=== PATIENT | male | born 1985 | race Caucasian/White ===

== ENCOUNTER 2025-02-04 19:19 | Emergency (ER) | payer SELFPAY ==
[2025-02-04 19:24] VITALS: BP 174/89; PULSE 96; TEMP 36.9; O2SAT 97; BMI 34.9
--- NOTE | 2025-02-04 19:42 | ED.BACK1 ---
HPI HPI - Back Pain/Injury General Chief Complaint: Back Pain/Injury Stated Complaint: BACK PAIN Time Seen by Provider: 02/04/25 19:28 Source: patient Mode of arrival: walk-in History of Present Illness HPI Narrative: back pain. Works as a machine tool mechanic. states around 2AM at work developed stiffness of his back. Not able to recall any injury. Around 4AM increased discomfort and drove home. Hard time getting out of the car due to pain. No radiation of pain to upper or lower extremities. Pain in his back left side just beneath his scapula. Denies similar pain. Hard to lay flat because the pain increases. Prefers to lay semi erected. no fever or chills Related Data Home Medications ?Medication ?Instructions ?Recorded ?Confirmed No Known Home Medications 02/04/25 02/04/25 Allergies Allergy/AdvReac Type Severity Reaction Status Date / Time No Known Drug Allergies Allergy Verified 02/04/25 19:29 Opioid HPI Opioid Management Most Recent Opioid Data: Last Pain Scale 4 Today, 22:42 Last ED Pain Assessment Today, 22:42 Last MAR Pain Assessment Today, 21:36 Review of Systems ROS Status of ROS 10 or more systems reviewed and unremarkable except as noted in history and below PFSH PFSH Social History Little interest or pleasure in doing things: not at all Feeling down, depressed, or hopeless: not at all Exam Constitutional Vital Signs, click to edit/add: Last Vital Signs Temp 98.4 F 02/04/25 19:24 Pulse 86 02/04/25 22:42 Resp 17 02/04/25 22:42 BP 154/97 H 02/04/25 22:42 Pulse Ox 95 02/04/25 22:42 Common normals: no apparent distress (no distress as long as he doesn't move), average body habitus, oriented x3, no limitations, healthy appearing, alert and well nourished [facility] Common normals: normocephalic and head/scalp atraumatic Eye Common normals: EOMs intact bilaterally and conjunctivae normal Respiratory Common normals: normal respiratory effort, no retractions, no use of accessory muscles and clear to auscultation bilaterally Cardio Common normals: regular rate, regular rhythm, S1 normal heart sound and S2 normal heart sound Back & Pelvis Back image (male):  1. tender contracted muscle Extremity Common normals: normal to inspection and full ROM Neuro Common normals: oriented x3, CN's II-XII intact bilaterally, moves all extremities and no focal motor deficits Psych Appearance: grossly normal Course Vital Signs Vital signs: Vital Signs Temperature 98.4 F 02/04/25 19:24 Pulse Rate 96 H 02/04/25 19:24 Respiratory Rate 18 02/04/25 19:24 Blood Pressure 174/89 H 02/04/25 19:24 Pulse Oximetry 97 02/04/25 19:24 Temperature 98.4 F 02/04/25 19:24 Pulse Rate 86 02/04/25 22:42 Respiratory Rate 17 02/04/25 22:42 Blood Pressure 154/97 H 02/04/25 22:42 Pulse Oximetry 95 02/04/25 22:42 MDM - Back Pain/Injury MDM Narrative Medical decision making narrative: patient presents with acute back pain without injury. On exam found to have muscular spasm left thoracic musculature. treated with cocktail of valium, Fentanyl, solumedrol and magnesium. Pain decreased to 4/10. Patient was able to get up and ambulate to the bathroom with decreased pain. Discharged with prescription for Bromide and valium as well as narcan and is to follow up with his doctor Lab Data Labs: Lab Results 02/04/25 Range/Units 20:08 WBC 6.7 (4.0-11.0) 10^3/uL RBC 4.72 (4.70-6.10) 10^6/uL Hgb 13.8 L (14.0-18.0) g/dL Hct 40.4 L (42.0-54.0) % MCV 85.6 (80.0-94.0) fL MCH 29.2 (25.9-34.0) pg MCHC 34.2 (29.9-35.2) g/dL RDW 12.7 (11.0-15.0) % Plt Count 250 (150-450) 10^3/uL MPV 9.6 (9.5-13.5) fL Neut % (Auto) 60.2 (43.0-75.0) % Lymph % (Auto) 32.3 (20.5-60.0) % [place] % (Auto) 4.2 (1.7-12.0) % Eos % (Auto) 1.9 (0.9-7.0) % Baso % (Auto) 1.0 (0.2-2.0) % Neut # (Auto) 4.0 (1.4-6.5) 10^3/uL Lymph # (Auto) 2.2 (1.2-3.8) 10^3/uL [place] # (Auto) 0.3 (0.3-0.8) 10^3/uL Eos # (Auto) 0.1 (0.0-0.7) 10^3/uL Baso # (Auto) 0.1 (0.0-0.1) 10^3/uL Abs Immat Gran (auto) 0.03 (0.00-0.03) 10^3/uL Imm/Tot Granulo (auto) 0.4 (0.0-0.5) % Sodium 140 (136-145) mmol/L Potassium 3.8 (3.5-5.1) mmol/L Chloride 104 (98-107) mmol/L Carbon Dioxide 25.9 (21.0-32.0) mmol/L Anion Gap 13.9 BUN 12.0 (7.0-18.0) mg/dL Creatinine 1.00 (0.70-1.30) mg/dL Est GFR ( Amer) >60 (>=60 mL/min/1.73m^2) Est GFR (Non-Af Amer) >60 (>=60 mL/min/1.73m^2) BUN/Creatinine Ratio 12.0 Glucose 216 H (74-106) mg/dL Calcium 8.8 (8.5-10.1) mg/dL C-Reactive Protein <0.50 (<=0.50) mg/dL Discharge Plan Discharge Chief Complaint: Back Pain/Injury Clinical Impression: Spasm of thoracic back muscle Patient Disposition: Home, Self-Care Prescriptions / Home Meds: No Action No Known Home Medications Print Language: Kenyan Instructions: Muscle Spasm (ED) Additional Instructions: follow up with your family doctor in a couple of days for recheck Referrals: Physician,Non-Staff, [Primary Care Provider] - 1 week
[2025-02-04 20:13] LABS: Basophils Absolute Auto 0.1 10^3/uL (0.0-0.1); Eosinophils Absolute Auto 0.1 10^3/uL (0.0-0.7); Eosinophils Percent Auto 1.9 % (0.9-7.0); Hematocrit 40.4 % (42.0-54.0); Hemoglobin 13.8 g/dL (14.0-18.0); Immature Granulocytes Abs Auto 0.03 10^3/uL (0.00-0.03); Immature Granulocytes Pct Auto 0.4 % (0.0-0.5); Lymphocytes Absolute Auto 2.2 10^3/uL (1.2-3.8); Lymphocytes Percent Auto 32.3 % (20.5-60.0); Mean Corpuscular HGB Conc 34.2 g/dL (29.9-35.2); Mean Corpuscular Hemoglobin 29.2 pg (25.9-34.0); Mean Corpuscular Volume 85.6 fL (80.0-94.0); Mean Platelet Volume 9.6 fL (9.5-13.5); Monocytes Absolute Auto 0.3 10^3/uL (0.3-0.8); Monocytes Percent Auto 4.2 % (1.7-12.0); Neutrophils Percent Auto 60.2 % (43.0-75.0); Platelet Count 250 10^3/uL (150-450); Red Blood Count 4.72 10^6/uL (4.70-6.10); Red Cell Distribution Width 12.7 % (11.0-15.0); White Blood Count 6.7 10^3/uL (4.0-11.0)
[2025-02-04] MEDS: METHYLPREDNISOLONE SOD SUCC PF 125 MG/2 ML VIAL IVP (20:18)
[2025-02-04] MEDS: DIAZEPAM 10 MG/2 ML SYRINGE 5 MG IV ×2 (20:18→21:35)
[2025-02-04] MEDS: MAGNESIUM SULFATE IN WATER 2 GM/50 ML PREMIX IV (20:20)
[2025-02-04 20:26] LABS: Anion Gap 13.9; C Reactive Protein <0.50 mg/dL (<=0.50); Calcium 8.8 mg/dL (8.5-10.1); Carbon Dioxide 25.9 mmol/L (21.0-32.0); Chloride 104 mmol/L (98-107); Estimated GFR (African America >60 (>=60 mL/min/1.73m^2); Estimated GFR (Non-African Ame >60 (>=60 mL/min/1.73m^2); Glucose 216 mg/dL (74-106); Potassium 3.8 mmol/L (3.5-5.1); Sodium 140 mmol/L (136-145)
[2025-02-04 20:40] VITALS: PULSE 90; O2SAT 94
[2025-02-04 21:03] VITALS: PULSE 94; O2SAT 93
[2025-02-04 21:08] VITALS: BP 155/95; PULSE 98; O2SAT 95
[2025-02-04] MEDS: FENTANYL CITRATE/PF 100 MCG/2 ML VIAL 50 MCG IV (21:36)
[2025-02-04 21:45] VITALS: BP 125/76
[2025-02-04 22:42] VITALS: BP 154/97; PULSE 86; O2SAT 95
[2025-02-04] MEDS: HYDROCODONE/ACET 5-325 MG TABLET 2 TAB PO (23:58)
[2025-02-05 00:01] VITALS: BP 143/95; PULSE 78; O2SAT 96
--- NOTE | 2025-02-05 00:03 | PC.NURSE ---
i gave this patient and his girlfriend verbal a nd written discharge orders along with 1 work note, medications to go home with and 3 Rx for this patient. this patient and his girlfriend voices yes to discharge orders and the 3 Rx usage. at time of discharge this patient nor his girlfriend voices no concerns and this patient shows no signs of distress
== END 2025-02-05 00:06 | disposition home or self-care (01) ==
PROVIDERS: Emergency Provider Internal Medicine
DX: M62.830 Muscle spasm of back (principal)
CPT/HCPCS: 36415; 80048; 85025; 86140; 96365; 96375; 96376; 99285; J2919; J3010; J3360; J3475

== ENCOUNTER 2025-06-04 08:59 | Emergency (ER) | payer SELFPAY ==
[2025-06-04 09:03] VITALS: BP 165/103; PULSE 96; TEMP 37; O2SAT 98; BMI 37.3
--- NOTE | 2025-06-04 09:26 | CT_ITS ---
The [address] [address] Patient Name: LEONORA DURON MRN: [id number] date: 1985 Sex: M Assigned Patient Location: ER Current Patient Location: Accession/Order Number: [id number] Exam Date: 06/04/2025 09:43 Report Date: 06/04/2025 10:15 At the request of: RUDOLPH MCCOY DO Procedure: CT abdomen pelvis wo con CT ABDOMEN AND PELVIS WITHOUT CONTRAST COMPARISON: None CLINICAL DATA: Bilateral flank pain, greater on the right. Dysuria. Spiral images were obtained through the abdomen and pelvis without contrast. This CT exam was performed using one or more following dose reduction techniques: Automated exposure control, adjustment of the mA and/or kV according to patient size, or use of iterative reconstruction technique. Limited cuts through the lung bases show no contributory findings. There is fatty infiltration of the liver. The gallbladder is surgically absent. No common duct stones are identified. The spleen, pancreas and adrenal glands show no acute findings. A 3 mm stone is present at the midpole on the left. There are four 2 mm stones at the mid lower pole on the right. No hydronephrosis is seen. There is no ureteral dilatation or stones. The abdominal aorta is normal caliber. There is minimal plaque. Small retroperitoneal and mesenteric lymph nodes are present. There is no ascites. There is a small umbilical hernia containing fat. The small bowel loops are normal caliber. There is mild stool at the ascending and transverse colon. The left colon is underdistended. There is minor endplate spurring at the spine. Images through the pelvis show nondistended small bowel. No appendiceal inflammation is seen. There is mild air and stool at the distal colon. No diverticular disease is noted. The prostate is not enlarged however it does contains some calcification. The urinary bladder shows no abnormalities for the degree of distention. There are benign-appearing inguinal lymph nodes. No ascites is identified. CT/CT abdomen pelvis wo con IMPRESSION: FATTY LIVER. BILATERAL NEPHROLITHIASIS. NO BOWEL OR URINARY TRACT OBSTRUCTION. SMALL NONSPECIFIC ABDOMINAL LYMPH NODES. NO ACUTE FINDINGS. Impression dictated by: Karen Cowan M.D. 06/04/2025 10:15 AM Dictation Location: [employer] [facility] [employer] [facility] Electronically authenticated by: [id number] Y Date: 06/04/2025 10:15
[2025-06-04] MEDS: HYDROMORPHONE HCL 1 MG/ML CARTRIDGE IV (09:34)
[2025-06-04] MEDS: KETOROLAC TROMETHAMINE 30 MG/ML VIAL IVP (09:34)
[2025-06-04 09:36] LABS: Hematocrit 42.2 % (42.0-54.0); Hemoglobin 14.5 g/dL (14.0-18.0); Immature Granulocytes Abs Auto 0.02 10^3/uL (0.00-0.03); Immature Granulocytes Pct Auto 0.3 % (0.0-0.5); Lymphocytes Absolute Auto 1.8 10^3/uL (1.2-3.8); Mean Corpuscular HGB Conc 34.4 g/dL (29.9-35.2); Mean Corpuscular Hemoglobin 29.6 pg (25.9-34.0); Mean Corpuscular Volume 86.1 fL (80.0-94.0); Platelet Count 216 10^3/uL (150-450); Red Blood Count 4.90 10^6/uL (4.70-6.10); White Blood Count 5.9 10^3/uL (4.0-11.0)
[2025-06-04 09:37] LABS: Glucose Urine UA NEGATIVE (NEGATIVE)
[2025-06-04 09:43] LABS: Anion Gap 14.7; Blood Urea Nitrogen 12.0 mg/dL (7.0-18.0); Calcium 8.9 mg/dL (8.5-10.1); Carbon Dioxide 26.5 mmol/L (21.0-32.0); Chloride 100 mmol/L (98-107); Estimated GFR (African America >60 (>=60 mL/min/1.73m^2); Estimated GFR (Non-African Ame >60 (>=60 mL/min/1.73m^2); Glucose 301 mg/dL (74-106); Potassium 4.2 mmol/L (3.5-5.1); Sodium 137 mmol/L (136-145)
[2025-06-04 09:53] LABS: Cast Seen? NONE SEEN #/LPF (NONE SEEN); Crystals Seen? None Seen #/HPF (None Seen)
--- NOTE | 2025-06-04 14:40 | ED.GENADUL1 ---
HPI HPI - General Adult General Chief complaint: Back Pain/Injury Stated complaint: back pain - possible kidney stone Time Seen by Provider: 06/04/25 09:09 Source: patient Mode of arrival: walk-in History of Present Illness HPI narrative: Patient is a 39-year-old male presenting to the emergency department for evaluation of back pain. Patient states his symptoms began last night, and progressively worsened throughout the morning. He states his symptoms feel exactly like the last time he had a kidney stone. He states he has been having some burning when he urinates as well. He states that any movements of his torso makes the pain worse. He denies hematuria. No fevers or chills. No abdominal pain, nausea, or vomiting. No chest pain or shortness of breath. Related Data Home Medications ?Medication ?Instructions ?Recorded ?Confirmed No Known Home Medications 02/04/25 06/04/25 Allergies Allergy/AdvReac Type Severity Reaction Status Date / Time No Known Drug Allergies Allergy Verified 06/04/25 09:03 Opioid HPI Opioid Management Most Recent Opioid Data: Last Pain Scale 8 Today, 09:39 Last ED Pain Assessment Today, 09:39 Last MAR Pain Assessment Today, 09:34 Review of Systems ROS Status of ROS 10 or more systems reviewed and unremarkable except as noted in history and below PFSH PFSH Social History Little interest or pleasure in doing things: not at all Feeling down, depressed, or hopeless: not at all Exam Narrative Exam Narrative: CONSTITUTIONAL: Sitting upright in the stretcher, complains of pain every time he rotates his torso, answering questions and following commands appropriately SKIN: Was warm and dry. EYES: Sclerae white. EARS, NOSE, THROAT: Moist oral mucosa. RESPIRATORY: Clear to auscultation bilaterally, no wheezes, crackles, or stridor, no use of accessory muscles CARDIOVASCULAR: Normal rate and regular rhythm. There is no S3, S4, murmur, rub. GASTROINTESTINAL: Abdomen is soft, nontender, nondistended. No rebound tenderness or guarding. Negative CVA tenderness. MUSCULOSKELETAL: There is reproducible tenderness to palpation throughout the musculature of the mid back. No midline T-spine tenderness. NEUROLOGIC: Patient is awake and alert. Constitutional Vital Signs, click to edit/add: Last Vital Signs Temp 98.6 F 06/04/25 09:03 Pulse 96 H 06/04/25 09:03 Resp 18 06/04/25 09:03 BP 165/103 H 06/04/25 09:03 Pulse Ox 98 06/04/25 09:03 O2 Del Method Room Air 06/04/25 09:03 Course Vital Signs Vital signs: Vital Signs Temperature 98.6 F 06/04/25 09:03 Pulse Rate 96 H 06/04/25 09:03 Respiratory Rate 18 06/04/25 09:03 Blood Pressure 165/103 H 06/04/25 09:03 Pulse Oximetry 98 06/04/25 09:03 Oxygen Delivery Method Room Air 06/04/25 09:03 Temperature 98.6 F 06/04/25 09:03 Pulse Rate 96 H 06/04/25 09:03 Respiratory Rate 18 06/04/25 09:03 Blood Pressure 165/103 H 06/04/25 09:03 Pulse Oximetry 98 06/04/25 09:03 Oxygen Delivery Method Room Air 06/04/25 09:03 Medical Decision Making MDM Narrative Medical decision making narrative: Patient is a 39-year-old male, history significant for kidney stones, presenting to the emergency department for evaluation of back pain beginning last night. Vital signs arrival were significant for hypertension, otherwise were within normal limits. He is afebrile and hemodynamically stable. Examination as noted above, however is notable for reproducible tenderness to palpation about the paraspinal muscles of the upper back. He is sitting upright in the stretcher and he complains of pain every time he rotates his torso. Clinically, I do believe the patient symptoms are likely musculoskeletal in nature. He is likely having back spasms, musculoskeletal strain. However, the patient states that symptoms are just like his last episodes of kidney stones, therefore I will work him up for this. CT abdomen/pelvis without contrast was ordered. IV was established and laboratory studies were obtained. He was treated with IV morphine and IV ketorolac. CT abdomen/pelvis independently reviewed and interpreted by myself and radiology demonstrated bilateral nephrolithiasis, no other acute findings. Laboratory studies were unremarkable. No significant electrolyte or metabolic derangement. No evidence of acute kidney injury. No anemia, leukocytosis, or thrombocytopenia. Urinalysis negative for acute infection. On reevaluation, the patient states he feels significantly improved. I do believe the patient is stable for discharge. Patient's presentation is most likely consistent with muscle spasms. They were instructed to follow up with their PCP for further care. Return precautions were given including any new or worsening symptoms. Patient understands and agrees to the plan. FINAL IMPRESSION: #Acute musculoskeletal thoracic back pain #History of kidney stones DISPOSITION: Discharged home CONDITION: Good Medical Records Medical records reviewed: Yes I reviewed the patient's medical records Lab Data Lab results reviewed: Yes I reviewed the patient's lab results Labs: Lab Results 06/04/25 06/04/25 Range/Units 09:15 09:20 WBC 5.9 (4.0-11.0) 10^3/uL RBC 4.90 (4.70-6.10) 10^6/uL Hgb 14.5 (14.0-18.0) g/dL Hct 42.2 (42.0-54.0) % MCV 86.1 (80.0-94.0) fL MCH 29.6 (25.9-34.0) pg MCHC 34.4 (29.9-35.2) g/dL RDW 12.7 (11.0-15.0) % Plt Count 216 (150-450) 10^3/uL MPV 9.8 (9.5-13.5) fL Neut % (Auto) 56.6 (43.0-75.0) % Lymph % (Auto) 31.5 (20.5-60.0) % [place] % (Auto) 6.3 (1.7-12.0) % Eos % (Auto) 3.9 (0.9-7.0) % Baso % (Auto) 1.4 (0.2-2.0) % Neut # (Auto) 3.3 (1.4-6.5) 10^3/uL Lymph # (Auto) 1.8 (1.2-3.8) 10^3/uL [place] # (Auto) 0.4 (0.3-0.8) 10^3/uL Eos # (Auto) 0.2 (0.0-0.7) 10^3/uL Baso # (Auto) 0.1 (0.0-0.1) 10^3/uL Abs Immat Gran (auto) 0.02 (0.00-0.03) 10^3/uL Imm/Tot Granulo (auto) 0.3 (0.0-0.5) % Sodium 137 (136-145) mmol/L Potassium 4.2 (3.5-5.1) mmol/L Chloride 100 (98-107) mmol/L Carbon Dioxide 26.5 (21.0-32.0) mmol/L Anion Gap 14.7 BUN 12.0 (7.0-18.0) mg/dL Creatinine 1.05 (0.70-1.30) mg/dL Est GFR ( Amer) >60 (>=60 mL/min/1.73m^2) Est GFR (Non-Af Amer) >60 (>=60 mL/min/1.73m^2) BUN/Creatinine Ratio 11.4 Glucose 301 H (74-106) mg/dL Calcium 8.9 (8.5-10.1) mg/dL Urine Color Lt. yellow (YELLOW) Urine Clarity Clear (CLEAR) Urine pH 7.0 (5.0-9.0) Ur Specific [place] 1.010 (1.005-1.025) Urine Protein Negative (NEG/TRACE) mg/dL Urine Glucose (UA) Negative (NEGATIVE) mg/dL Urine Ketones Negative (NEGATIVE) mg/dL Urine Occult Blood Negative (NEGATIVE) Urine Nitrite Negative (NEGATIVE) Urine Bilirubin Negative (NEGATIVE) Urine Urobilinogen 0.2 (0.2-1.0) EU/dL Ur Leukocyte Esterase Negative (NEGATIVE) Urine RBC 0-2 (0-2) #/HPF Urine WBC 0-2 A (NONE SEEN) #/HPF Ur Squamous Epith Cells None seen (NONE/RARE) #/LPF Urine Crystals None seen (None Seen) #/HPF Urine Bacteria Trace A (NONE SEEN) #/HPF Urine Casts None seen (NONE SEEN) #/LPF Urine Mucus None seen (NONE SEEN) Imaging Data CT scan - abdomen: Attestation: I personally reviewed and interpreted this imaging study as follows: Radiologist's impression: ITS Impressions Abdomen/Pelvis CT 06/04/25 09:26 IMPRESSION: FATTY LIVER. BILATERAL NEPHROLITHIASIS. NO BOWEL OR URINARY TRACT OBSTRUCTION. SMALL NONSPECIFIC ABDOMINAL LYMPH NODES. NO ACUTE FINDINGS. Impression dictated by: Karen Cowan M.D. 06/04/2025 10:15 AM Dictation Location: [place] [address] Electronically authenticated by: [id number] Y Date: 06/04/2025 10:15 Discharge Plan Discharge Chief Complaint: Back Pain/Injury Clinical Impression: Spasm of thoracic back muscle Patient Disposition: Home, Self-Care Time of Disposition Decision: 10:23 Condition: Good Mode of Transportation: Private Vehicle Prescriptions / Home Meds: No Action No Known Home Medications Print Language: Moldovan Instructions: Muscle Spasm (ED) Referrals: Physician,Non-Staff, MD [Primary Care Provider] - 1 week Discharge Date/Time: 06/04/25 11:19
== END 2025-06-04 11:19 | disposition home or self-care (01) ==
PROVIDERS: Emergency Provider Student in an Organized Health Care Education/Training Program
DX: M54.6 Pain in thoracic spine (principal); Z87.442 Personal history of urinary calculi
CPT/HCPCS: 36415; 74176; 80048; 81001; 85025; 96374; 96375; 99284; J1171; J1885